=== PATIENT | female | born 1945 | race Caucasian/White ===

== ENCOUNTER → 2020-08-30 | Outpatient (CLI) | payer MEDICARE | END | disposition home or self-care (01) | LOC: LAB EV 13:23 → LAB SHORT 13:23 | DX: N39.0 Urinary tract infection, site not specified (principal) | CPT/HCPCS: 87077; 87086; 87186 ==

== ENCOUNTER 2021-01-03 09:46 | Day surgery (SDC) | payer MEDICARE ==
[~2021-01-03] VITALS: Ht 167.6 cm; Wt 74.8 kg
[~2021-01-03 09:46] MED LIST: VITAMIN D32000 UNI1 PO
--- NOTE | 2021-01-03 14:28 | NUR ---
01/03/21 5856 Kenyatta Moya PT COMPLAINS OF 5/10 PAIN, A COMBINATION OF SORE THROAT AND SURGICAL PAIN, HOWEVER SHE REFUSES PAIN MEDICATION AT THIS TIME. I TOLD HER TO LET ME KNOW IF SHE CHANGES HER MIND OR BECOMES MORE UNCOMFORTABLE. [facility], CALL LIGHT IN REACH.
== END 2021-01-03 15:22 | disposition home or self-care (01) ==
LOC: ORSCSDS 09:46
PROVIDERS: Otolaryngology
PROC: 0GBR0ZZ Excision of Parathyroid Gland, Open Approach (ICD-10-PCS; principal; 2021-01-03 11:00)
DX: E21.3 Hyperparathyroidism, unspecified (principal)
CPT/HCPCS: 83970; 88305; 88331; J1100; J2405; J2704; J3010; J7120

== ENCOUNTER → 2025-06-30 | Outpatient (CLI) | payer MEDICARE ==
[2025-06-30 21:46] LABS: Calcium, Urine 34.9 mg/dL (< 17.5); Calcium, Urine Calculation 349.0 mg/24hrs (42.0-353.0)
== END ==
LOC: LAB SHORT 10:00 → LAB 10:00
PROVIDERS: Internal Medicine Endocrinology, Diabetes & Metabolism
DX: E21.0 Primary hyperparathyroidism (principal)
CPT/HCPCS: 82340; 82570